=== PATIENT | male | born 1985 | race Two or more races ===

== ENCOUNTER 2021-01-06 15:42 | Emergency (ER) | payer OTHER ==
[2021-01-06 16:04] VITALS: BP 124/78; PULSE 97; TEMP 98.3; BMI 29.5
== END 2021-01-06 17:18 | disposition home or self-care (01) ==
LOC: JER 15:42
DX: R68.83 Chills (without fever) (principal); R52 Pain, unspecified; R51.9 Headache, unspecified; Z11.52 Encounter for screening for COVID-19
CPT/HCPCS: 82962; 99283-25; C9803; U0003; U0005